=== PATIENT | male | born 1930 | race Caucasian/White ===

== ENCOUNTER → 2017-01-08 | Outpatient (CLI) | payer MEDICARE, OTHER ==
[~2017-01-08] MED LIST: AMLODIPINE5 MG PO; APRESOLINE 25MG25 MG PO; BYSTOLIC5 MG PO; CALCIUM 600600 M2 PO; COLESTID 1GM1 G; FLONASE0.05 MG/AC; GOOD SENSE ASPI81 M1 PO; LOVASTATIN20 MG; METFORMIN1000 MG PO; METOPROLOL TART25 MG; PLAVIX 75MG TAB75 MG
== END ==
LOC: LAB 09:30
DX: Z00.00 Encounter for general adult medical examination without abnormal findings (principal); E11.9 Type 2 diabetes mellitus without complications; I10 Essential (primary) hypertension; N18.3 Chronic kidney disease, stage 3 (moderate); E78.00 Pure hypercholesterolemia, unspecified; R05 Cough; J02.9 Acute pharyngitis, unspecified

== ENCOUNTER → 2017-03-06 | Outpatient (CLI) | payer MEDICARE, OTHER | LOC: LAB 09:57 | DX: N18.3 Chronic kidney disease, stage 3 (moderate) (principal) ==

== ENCOUNTER 2017-04-30 13:00 | Outpatient (RCR) | payer MEDICARE, OTHER ==
[2013-05-19 15:00] VITALS: BP 143/50
== END 2017-05-01 11:26 | disposition home or self-care (01) ==
LOC: PT 13:00
DX: I63.9 Cerebral infarction, unspecified (principal); R25.2 Cramp and spasm; L98.9 Disorder of the skin and subcutaneous tissue, unspecified

== ENCOUNTER → 2017-07-11 | Outpatient (CLI) | payer MEDICARE, OTHER ==
[2013-05-19 15:00] VITALS: BP 143/50
== END ==
LOC: RAD 15:58
DX: K59.00 Constipation, unspecified (principal); I10 Essential (primary) hypertension

== ENCOUNTER → 2017-09-05 | Outpatient (CLI) | payer MEDICARE, OTHER ==
[2013-05-19 15:00] VITALS: BP 143/50
== END ==
LOC: LAB 09:25
DX: N18.3 Chronic kidney disease, stage 3 (moderate) (principal); N25.81 Secondary hyperparathyroidism of renal origin

== ENCOUNTER → 2017-10-22 | Outpatient (CLI) | payer MEDICARE, OTHER ==
[2013-05-19 15:00] VITALS: BP 143/50
[2017-10-22 13:25] LABS: BUN/CREATININE RATIO 15.4 (6.0-26.0); CALCIUM 9.5 mg/dL (8.4-10.2); POTASSIUM 3.5 mmol/L (3.6-5.0)
== END ==
LOC: LAB 12:20
PROVIDERS: Internal Medicine
DX: N25.81 Secondary hyperparathyroidism of renal origin (principal); N18.3 Chronic kidney disease, stage 3 (moderate)

== ENCOUNTER 2017-12-09 18:18 | Emergency (ER) | payer MEDICARE, OTHER ==
[~2017-12-09] VITALS: Ht 165.1 cm; Wt 83.6 kg
[2017-12-09 20:05] LABS: BASO # 0.1 (0.02-0.10); EOS # 0.3 (0.04-0.40); EOS % 2.2 % (0.0-4.0); HEMATOCRIT 37.7 % (42.0-52.0); LYMPH# 1.7 (1.50-4.00); MEAN CELL VOLUME 83 fl (78-100); MEAN CORPUSCULAR HEMOGLOBIN 26 pg (27-31); MEAN CORPUSCULAR HGB CONC 32 g/dL (33-37); MEAN PLATELET VOLUME 9.5 fl (7.4-10.4); MONO # 1.1 (0.20-0.80); PLATELET COUNT 266 K/mm3 (130-400); RED BLOOD COUNT 4.55 M/mm3 (4.20-5.60); WHITE BLOOD COUNT 12.2 K/mm3 (4.8-10.8)
[2017-12-09] MEDS ORDERED: HCTZ 25MG25 MG PO (20:13)
[2017-12-09] MEDS ORDERED: DIABETA 2.5MG2.5 MG PO (20:13)
[2017-12-09 20:14] LABS: BUN/CREATININE RATIO 13.5 (6.0-26.0); CALCIUM 9.3 mg/dL (8.4-10.2); POTASSIUM 3.8 mmol/L (3.6-5.0); TOTAL BILIRUBIN 0.8 mg/dL (0.2-1.3); TOTAL PROTEIN 7.5 g/dL (6.3-8.2)
[2017-12-09] MEDS ORDERED: DONEPEZIL HCL10 MG PO (20:14)
[2017-12-09] MEDS ORDERED: BACLOFEN10 M1 PO (20:15)
[2017-12-09] MEDS ORDERED: VITAMIN D5000 I1 PO (20:16)
[2017-12-09] MEDS ORDERED: VITAMIN D31000 I1 PO (20:16)
[2017-12-09 20:21] LABS: CKMB ISOENZYME 1.5 ng/mL (0.6-3.5)
[2017-12-09 20:26] LABS: TROPONIN-I < 0.03 ng/mL (0.00-0.06)
[2017-12-09 22:14] LABS: URINE APPEARANCE CLEAR; URINE BILIRUBIN NEGATIVE (NEGATIVE); URINE BLOOD TRACE (NEGATIVE); URINE COLOR YELLOW; URINE GLUCOSE NEGATIVE (NEGATIVE); URINE KETONE NEGATIVE (NEGATIVE); URINE LEUKOCYTE ESTERASE NEGATIVE (NEGATIVE); URINE MUCUS PRESENT (NOT PRESENT); URINE NITRATE NEGATIVE (NEGATIVE); URINE PROTEIN(semi-quant) 1+ mg/dL (NEGATIVE); URINE UROBILINOGEN NORMAL (NORMAL)
[2017-12-09 22:25] VITALS: BP 162/69
== END 2017-12-09 22:04 | disposition home or self-care (01) ==
LOC: ED 18:18
PROVIDERS: Nurse Practitioner Family
DX: M51.16 Intervertebral disc disorders with radiculopathy, lumbar region (principal); M50.122 Cervical disc disorder at C5-C6 level with radiculopathy; E11.22 Type 2 diabetes mellitus with diabetic chronic kidney disease; I12.9 Hypertensive chronic kidney disease with stage 1 through stage 4 chronic kidney disease, or unspecified chronic kidney disease; N18.9 Chronic kidney disease, unspecified; E11.40 Type 2 diabetes mellitus with diabetic neuropathy, unspecified; Z85.51 Personal history of malignant neoplasm of bladder; Z86.73 Personal history of transient ischemic attack (TIA), and cerebral infarction without residual deficits; E78.5 Hyperlipidemia, unspecified; F03.90 Unspecified dementia, unspecified severity, without behavioral disturbance, psychotic disturbance, mood disturbance, and anxiety; Z79.02 Long term (current) use of antithrombotics/antiplatelets; Z79.82 Long term (current) use of aspirin; Z79.84 Long term (current) use of oral hypoglycemic drugs
CPT/HCPCS: J2405; J7030

== ENCOUNTER 2017-12-24 10:30 | Outpatient (RCR) | payer MEDICARE, OTHER ==
[~2017-12-24 10:30] MED LIST changes: +BACLOFEN10 M1 PO; +DIABETA 2.5MG2.5 MG PO; +DONEPEZIL HCL10 MG PO; +HCTZ 25MG25 MG PO; +VITAMIN D31000 I1 PO; +VITAMIN D5000 I1 PO
== END 2017-12-24 11:00 | disposition still patient (30) ==
LOC: PT 10:30
DX: M54.5 Low back pain (principal); M19.90 Unspecified osteoarthritis, unspecified site; M54.2 Cervicalgia; I63.9 Cerebral infarction, unspecified
CPT/HCPCS: G8978-GP; G8979-GP

== ENCOUNTER → 2018-01-13 | Outpatient (CLI) | payer MEDICARE, OTHER ==
[2018-01-13 10:11] LABS: HEMATOCRIT 37.7 % (42.0-52.0); HEMOGLOBIN 12.1 g/dL (13.5-18.0); MEAN PLATELET VOLUME 9.1 fl (7.4-10.4); RED BLOOD COUNT 4.59 M/mm3 (4.20-5.60); RED CELL DISTRIBUTION WIDTH 15.2 % (11.5-14.5); WHITE BLOOD COUNT 10.3 K/mm3 (4.8-10.8)
[2018-01-13 10:29] LABS: ALBUMIN 4.1 g/dL (3.5-5.0); CALCIUM 9.3 mg/dL (8.4-10.2); POTASSIUM 3.9 mmol/L (3.6-5.0); TOTAL BILIRUBIN 0.7 mg/dL (0.2-1.3); TOTAL PROTEIN 7.6 g/dL (6.3-8.2)
== END ==
LOC: LAB 09:57
PROVIDERS: Family Medicine
DX: E11.9 Type 2 diabetes mellitus without complications (principal); R53.83 Other fatigue

== ENCOUNTER → 2018-03-05 | Outpatient (CLI) | payer MEDICARE, OTHER ==
[2018-03-05 13:26] LABS: BASO # 0.1 (0.02-0.10); EOS # 0.3 (0.04-0.40); EOS % 3.9 % (0.0-4.0); HEMATOCRIT 38.8 % (42.0-52.0); HEMOGLOBIN 12.5 g/dL (13.5-18.0); MEAN CELL VOLUME 82 fl (78-100); MEAN CORPUSCULAR HEMOGLOBIN 26 pg (27-31); MEAN CORPUSCULAR HGB CONC 32 g/dL (33-37); MEAN PLATELET VOLUME 9.7 fl (7.4-10.4); NEU # 5.2 (1.40-6.50); PLATELET COUNT 281 K/mm3 (130-400); RED BLOOD COUNT 4.73 M/mm3 (4.20-5.60); RED CELL DISTRIBUTION WIDTH 15.3 % (11.5-14.5); WHITE BLOOD COUNT 8.6 K/mm3 (4.8-10.8)
[2018-03-05 13:32] LABS: BUN/CREATININE RATIO 17.9 (6.0-26.0); CALCIUM 9.6 mg/dL (8.4-10.2); POTASSIUM 3.6 mmol/L (3.6-5.0)
== END ==
LOC: LAB 12:00
PROVIDERS: Internal Medicine
DX: N18.3 Chronic kidney disease, stage 3 (moderate) (principal); N25.81 Secondary hyperparathyroidism of renal origin

== ENCOUNTER → 2018-07-30 | Outpatient (CLI) | payer MEDICARE, OTHER | LOC: LAB 11:30 | DX: I10 Essential (primary) hypertension (principal); F03.90 Unspecified dementia, unspecified severity, without behavioral disturbance, psychotic disturbance, mood disturbance, and anxiety; G62.9 Polyneuropathy, unspecified; R60.0 Localized edema ==

== ENCOUNTER → 2018-09-03 | Outpatient (CLI) | payer MEDICARE, OTHER ==
[2018-09-03 14:23] LABS: HEMATOCRIT 37.4 % (42.0-52.0); HEMOGLOBIN 12.3 g/dL (13.5-18.0)
[2018-09-03 14:36] LABS: CALCIUM 9.5 mg/dL (8.4-10.2); POTASSIUM 3.9 mmol/L (3.6-5.0)
[2018-09-03 17:33] LABS: URINE APPEARANCE CLEAR; URINE BILIRUBIN NEGATIVE (NEGATIVE); URINE BLOOD TRACE (NEGATIVE); URINE COLOR YELLOW; URINE GLUCOSE NEGATIVE (NEGATIVE); URINE KETONE NEGATIVE (NEGATIVE); URINE LEUKOCYTE ESTERASE NEGATIVE (NEGATIVE); URINE NITRATE NEGATIVE (NEGATIVE); URINE PROTEIN(semi-quant) 1+ mg/dL (NEGATIVE); URINE UROBILINOGEN NORMAL (NORMAL)
[2018-09-03 17:34] LABS: URINE MUCUS PRESENT (NOT PRESENT)
== END ==
LOC: LAB 13:55
PROVIDERS: Internal Medicine
DX: I12.9 Hypertensive chronic kidney disease with stage 1 through stage 4 chronic kidney disease, or unspecified chronic kidney disease (principal); N18.3 Chronic kidney disease, stage 3 (moderate); N25.81 Secondary hyperparathyroidism of renal origin; D49.4 Neoplasm of unspecified behavior of bladder

== ENCOUNTER → 2018-10-07 | Outpatient (CLI) | payer MEDICARE, OTHER ==
[2018-10-07 13:37] LABS: HEMATOCRIT 37.6 % (42.0-52.0); HEMOGLOBIN 12.3 g/dL (13.5-18.0)
[2018-10-07 13:49] LABS: CALCIUM 9.3 mg/dL (8.4-10.2); POTASSIUM 3.7 mmol/L (3.6-5.0)
[2018-10-07 13:55] LABS: URINE APPEARANCE CLEAR; URINE BILIRUBIN NEGATIVE (NEGATIVE); URINE BLOOD NEGATIVE (NEGATIVE); URINE COLOR YELLOW; URINE GLUCOSE NEGATIVE (NEGATIVE); URINE KETONE NEGATIVE (NEGATIVE); URINE LEUKOCYTE ESTERASE NEGATIVE (NEGATIVE); URINE MUCUS PRESENT (NOT PRESENT); URINE NITRATE NEGATIVE (NEGATIVE); URINE PROTEIN(semi-quant) TRACE mg/dL (NEGATIVE); URINE UROBILINOGEN NORMAL (NORMAL)
== END ==
LOC: LAB 13:24
PROVIDERS: Internal Medicine
DX: E11.22 Type 2 diabetes mellitus with diabetic chronic kidney disease (principal); I12.9 Hypertensive chronic kidney disease with stage 1 through stage 4 chronic kidney disease, or unspecified chronic kidney disease; N18.3 Chronic kidney disease, stage 3 (moderate); R31.29 Other microscopic hematuria

== ENCOUNTER → 2019-01-15 | Outpatient (CLI) | payer MEDICARE, OTHER ==
[2019-01-15 09:02] LABS: ALBUMIN 4.3 g/dL (3.5-5.0); CALCIUM 9.4 mg/dL (8.4-10.2); POTASSIUM 3.8 mmol/L (3.6-5.0); TOTAL BILIRUBIN 0.8 mg/dL (0.2-1.3); TOTAL PROTEIN 8.1 g/dL (6.3-8.2)
== END ==
LOC: LAB 01-11 13:57
PROVIDERS: Family Medicine
DX: E11.9 Type 2 diabetes mellitus without complications (principal); R53.83 Other fatigue

== ENCOUNTER → 2019-03-05 | Outpatient (CLI) | payer MEDICARE, OTHER ==
[2019-03-05 10:10] LABS: CALCIUM 9.3 mg/dL (8.4-10.2)
[2019-03-05 10:12] LABS: HEMATOCRIT 38.5 % (42.0-52.0); HEMOGLOBIN 12.3 g/dL (13.5-18.0); MEAN PLATELET VOLUME 9.7 fl (7.4-10.4); RED BLOOD COUNT 4.73 M/mm3 (4.20-5.60); RED CELL DISTRIBUTION WIDTH 15.1 % (11.5-14.5); WHITE BLOOD COUNT 8.2 K/mm3 (4.8-10.8)
== END ==
LOC: LAB 09:45
PROVIDERS: Internal Medicine
DX: I12.9 Hypertensive chronic kidney disease with stage 1 through stage 4 chronic kidney disease, or unspecified chronic kidney disease (principal); N18.3 Chronic kidney disease, stage 3 (moderate); E11.22 Type 2 diabetes mellitus with diabetic chronic kidney disease

== ENCOUNTER → 2019-04-08 | Outpatient (CLI) | payer MEDICARE, OTHER | LOC: RAD 14:22 | DX: Z00.00 Encounter for general adult medical examination without abnormal findings (principal); N20.0 Calculus of kidney; K59.09 Other constipation; M19.90 Unspecified osteoarthritis, unspecified site; I63.9 Cerebral infarction, unspecified; F03.90 Unspecified dementia, unspecified severity, without behavioral disturbance, psychotic disturbance, mood disturbance, and anxiety; E11.40 Type 2 diabetes mellitus with diabetic neuropathy, unspecified; I45.10 Unspecified right bundle-branch block ==

== ENCOUNTER → 2019-04-15 | Outpatient (CLI) | payer MEDICARE, OTHER ==
[2019-04-15 14:43] LABS: BASO # 0.1 (0.02-0.10); EOS # 0.5 (0.04-0.40); EOS % 4.2 % (0.0-4.0); HEMATOCRIT 36.5 % (42.0-52.0); HEMOGLOBIN 12.2 g/dL (13.5-18.0); MEAN CELL VOLUME 80 fl (78-100); MEAN CORPUSCULAR HEMOGLOBIN 27 pg (27-31); MEAN CORPUSCULAR HGB CONC 33 g/dL (33-37); MEAN PLATELET VOLUME 9.5 fl (7.4-10.4); MONO # 1.3 (0.20-0.80); NEU # 6.6 (1.40-6.50); PLATELET COUNT 326 K/mm3 (130-400); RED BLOOD COUNT 4.57 M/mm3 (4.20-5.60); RED CELL DISTRIBUTION WIDTH 15.2 % (11.5-14.5); WHITE BLOOD COUNT 11.4 K/mm3 (4.8-10.8)
[2019-04-15 15:16] LABS: ALBUMIN 3.9 g/dL (3.4-4.8); CALCIUM 10.2 mg/dL (8.8-10.0); POTASSIUM 3.9 mmol/L (3.5-5.1); TOTAL BILIRUBIN 0.9 mg/dL (0.2-1.2); TOTAL PROTEIN 7.3 g/dL (6.2-8.1)
[2019-04-16 17:00] LABS: FOLATE (FOLIC ACID) 19.5 ng/mL (7.0-31.4)
[2019-04-19 23:43] LABS: VITAMIN B1 120 nmol/L (70-180)
[2019-04-20 10:58] LABS: VITAMIN E 7.7 mg/L (())
== END ==
LOC: LAB 14:02 → RAD 14:02
PROVIDERS: Psychiatry & Neurology Neurology
DX: G31.9 Degenerative disease of nervous system, unspecified (principal); F03.90 Unspecified dementia, unspecified severity, without behavioral disturbance, psychotic disturbance, mood disturbance, and anxiety; A53.9 Syphilis, unspecified

== ENCOUNTER → 2019-07-12 | Outpatient (CLI) | payer MEDICARE, OTHER ==
[2019-07-12 18:14] LABS: POTASSIUM 4.2 mmol/L (3.5-5.1)
[2019-07-12 18:15] LABS: CALCIUM 9.5 mg/dL (8.3-10.5)
== END ==
LOC: LAB 17:31
PROVIDERS: Family Medicine
DX: E11.22 Type 2 diabetes mellitus with diabetic chronic kidney disease (principal); N18.3 Chronic kidney disease, stage 3 (moderate); M10.9 Gout, unspecified

== ENCOUNTER → 2019-07-28 | Outpatient (CLI) | payer MEDICARE, OTHER ==
[2019-07-28 15:47] LABS: POTASSIUM 3.6 mmol/L (3.5-5.1)
[2019-07-28 15:49] LABS: CALCIUM 9.9 mg/dL (8.3-10.5)
== END ==
LOC: LAB 15:18
PROVIDERS: Family Medicine
DX: N19 Unspecified kidney failure (principal)

== ENCOUNTER → 2019-09-03 | Outpatient (CLI) | payer MEDICARE, OTHER ==
[2019-09-03 10:25] LABS: POTASSIUM 3.5 mmol/L (3.5-5.1)
[2019-09-03 10:26] LABS: CALCIUM 9.7 mg/dL (8.3-10.5)
== END ==
LOC: LAB 10:05
PROVIDERS: Internal Medicine Nephrology
DX: I12.9 Hypertensive chronic kidney disease with stage 1 through stage 4 chronic kidney disease, or unspecified chronic kidney disease (principal); N18.3 Chronic kidney disease, stage 3 (moderate)

== ENCOUNTER → 2020-01-10 | Outpatient (CLI) | payer MEDICARE, OTHER ==
[2020-01-12 09:01] LABS: POTASSIUM 3.8 mmol/L (3.5-5.1)
[2020-01-12 09:02] LABS: CALCIUM 8.7 mg/dL (8.3-10.5)
== END ==
LOC: LAB 10:25
PROVIDERS: Internal Medicine Nephrology
DX: I12.9 Hypertensive chronic kidney disease with stage 1 through stage 4 chronic kidney disease, or unspecified chronic kidney disease (principal); N18.3 Chronic kidney disease, stage 3 (moderate); M10.9 Gout, unspecified

== ENCOUNTER → 2020-02-02 | Outpatient (CLI) | payer MEDICARE, OTHER | LOC: LAB 14:43 | DX: M18.9 Osteoarthritis of first carpometacarpal joint, unspecified (principal); M19.042 Primary osteoarthritis, left hand; M89.342 Hypertrophy of bone, left hand; M19.041 Primary osteoarthritis, right hand; I12.9 Hypertensive chronic kidney disease with stage 1 through stage 4 chronic kidney disease, or unspecified chronic kidney disease; N18.3 Chronic kidney disease, stage 3 (moderate); E11.22 Type 2 diabetes mellitus with diabetic chronic kidney disease; M10.9 Gout, unspecified ==

== ENCOUNTER → 2020-06-29 | Outpatient (CLI) | payer MEDICARE, OTHER ==
[2020-06-29 14:59] LABS: POTASSIUM 4.7 mmol/L (3.5-5.1)
[2020-06-29 15:01] LABS: CALCIUM 9.9 mg/dL (8.3-10.5)
== END ==
LOC: LAB 14:36
PROVIDERS: Family Medicine
DX: I12.9 Hypertensive chronic kidney disease with stage 1 through stage 4 chronic kidney disease, or unspecified chronic kidney disease (principal); M19.90 Unspecified osteoarthritis, unspecified site; G62.9 Polyneuropathy, unspecified; I63.9 Cerebral infarction, unspecified; N18.3 Chronic kidney disease, stage 3 (moderate); N25.81 Secondary hyperparathyroidism of renal origin

== ENCOUNTER → 2020-08-02 | Outpatient (CLI) | payer MEDICARE, OTHER ==
[2020-08-02 15:13] LABS: POTASSIUM 5.2 mmol/L (3.5-5.1)
[2020-08-02 15:15] LABS: CALCIUM 9.8 mg/dL (8.3-10.5)
== END ==
LOC: LAB 14:49
PROVIDERS: Family Medicine
DX: M19.90 Unspecified osteoarthritis, unspecified site (principal)

== ENCOUNTER 2020-08-10 14:00 | Outpatient (RCR) | payer MEDICARE, OTHER | END 2020-08-10 14:30 | disposition still patient (30) | LOC: OT 14:00 | DX: M19.042 Primary osteoarthritis, left hand (principal) ==

== ENCOUNTER → 2020-09-08 | Outpatient (CLI) | payer MEDICARE, OTHER ==
[2020-09-08 11:16] LABS: POTASSIUM 4.7 mmol/L (3.5-5.1)
[2020-09-08 11:17] LABS: CALCIUM 9.3 mg/dL (8.3-10.5)
== END ==
LOC: LAB 10:53
PROVIDERS: Internal Medicine Nephrology
DX: M19.90 Unspecified osteoarthritis, unspecified site (principal); M79.643 Pain in unspecified hand

== ENCOUNTER 2020-12-21 14:59 | Emergency (ER) | payer MEDICARE, OTHER ==
[~2020-12-21] VITALS: Ht 165.1 cm; Wt 83.6 kg
== END 2020-12-21 21:00 | disposition expired ==
LOC: ED 14:59
DX: I46.9 Cardiac arrest, cause unspecified (principal); E11.9 Type 2 diabetes mellitus without complications; I13.10 Hypertensive heart and chronic kidney disease without heart failure, with stage 1 through stage 4 chronic kidney disease, or unspecified chronic kidney disease; E78.5 Hyperlipidemia, unspecified; F03.90 Unspecified dementia, unspecified severity, without behavioral disturbance, psychotic disturbance, mood disturbance, and anxiety; Z20.822 Contact with and (suspected) exposure to COVID-19; Z79.02 Long term (current) use of antithrombotics/antiplatelets; Z79.82 Long term (current) use of aspirin; Z79.84 Long term (current) use of oral hypoglycemic drugs
CPT/HCPCS: J0171; J7030